=== PATIENT | male | born 1970 | race African-American/Black ===

== ENCOUNTER 2025-01-30 15:42 | Emergency (ER) | payer SELFPAY ==
[~2025-01-30] VITALS: Ht 172.7 cm; Wt 77.3 kg
[2025-01-30 15:52] VITALS: BP 160/93; PULSE 73; RESP 18; TEMP 98.1; O2SAT 100
[2025-01-30] MEDS ORDERED: CYCL-448 PO (15:56)
[2025-01-30] MEDS ORDERED: SULF1TAB94 PO (16:16)
[2025-01-30] MEDS: SULFAMETHOX/TRIMETH DS 800-160 MG/TABLET PO ONE (16:40)
== END 2025-01-30 17:34 | disposition home or self-care (01) ==
LOC: EMS 15:49
DX: L02.511 Cutaneous abscess of right hand (principal); Z90.49 Acquired absence of other specified parts of digestive tract; Z79.899 Other long term (current) drug therapy; W57.XXXA Bitten or stung by nonvenomous insect and other nonvenomous arthropods, initial encounter
CPT/HCPCS: 99283